=== PATIENT | female | born 1970 | race Caucasian/White ===

== ENCOUNTER → 2023-12-30 16:17 | Outpatient (REF) | payer OTHER, SELFPAY | LOC: HWRAD 16:17 | PROVIDERS: ATTENDING PHYSICIAN Nurse Practitioner; FAMILY PHYSICIAN Internal Medicine | DX: M89.8X1 Other specified disorders of bone, shoulder (principal) | CPT/HCPCS: 73000 ==

== ENCOUNTER → 2024-01-24 06:32 | Day surgery (SDC) | payer OTHER, SELFPAY | LOC: GI 06:32 | PROVIDERS: ATTENDING PHYSICIAN Internal Medicine Gastroenterology | DX: Z12.11 Encounter for screening for malignant neoplasm of colon (principal) | CPT/HCPCS: G0121 ==

== ENCOUNTER → 2024-10-06 16:22 | Outpatient (REF) | payer OTHER, SELFPAY | LOC: HWRAD 16:22 | PROVIDERS: ATTENDING PHYSICIAN Nurse Practitioner | DX: R76.8 Other specified abnormal immunological findings in serum (principal) | CPT/HCPCS: 73130; 73630 ==

== ENCOUNTER → 2024-12-03 13:00 | Outpatient (REF) | payer OTHER, SELFPAY | LOC: HWRAD 13:00 | PROVIDERS: ATTENDING PHYSICIAN Student in an Organized Health Care Education/Training Program; FAMILY PHYSICIAN Internal Medicine | DX: M54.2 Cervicalgia (principal); M77.9 Enthesopathy, unspecified; R76.8 Other specified abnormal immunological findings in serum; M25.551 Pain in right hip; M25.552 Pain in left hip | CPT/HCPCS: 71046; 73523 ==

== ENCOUNTER → 2025-01-27 11:02 | Outpatient (REF) | payer OTHER, SELFPAY | LOC: HWRAD 11:02 | PROVIDERS: ATTENDING PHYSICIAN Student in an Organized Health Care Education/Training Program; FAMILY PHYSICIAN Internal Medicine | DX: G89.29 Other chronic pain (principal); M25.551 Pain in right hip; M25.552 Pain in left hip; M45.2 Ankylosing spondylitis of cervical region; M54.50 Low back pain, unspecified; M77.9 Enthesopathy, unspecified; M79.89 Other specified soft tissue disorders | CPT/HCPCS: 71250 ==

== ENCOUNTER → 2025-08-10 11:53 | Outpatient (REF) | payer OTHER, SELFPAY | LOC: HWWDC 11:53 | PROVIDERS: ATTENDING PHYSICIAN Obstetrics & Gynecology Gynecology; FAMILY PHYSICIAN Internal Medicine | DX: Z12.31 Encounter for screening mammogram for malignant neoplasm of breast (principal) | CPT/HCPCS: 77063; 77067 ==